=== PATIENT | male | born 1965 | race Caucasian/White ===

== ENCOUNTER 2017-03-26 23:09 | Emergency (ER) | payer OTHER ==
[~2017-03-26] VITALS: Ht 177.8 cm; Wt 78.0 kg
[2017-03-26 23:59] LABS: ABSOLUTE BASOPHIL COUNT 0.1 /CUMM (0.0-0.2); ABSOLUTE EOSINOPHIL COUNT 0.2 /CUMM (0.0-0.7); ABSOLUTE LYMPH COUNT 1.2 /CUMM (1.2-3.4); ABSOLUTE MONOCYTE COUNT 0.9 /CUMM (0.10-0.60); BASOPHIL % 0.2 % (0.0-2.0); EOSINOPHIL % 0.6 % (0-5); HEMATOCRIT 44.5 % (42-52); MEAN CORPUSCULAR HGB 30.7 PG (27.0-31.0); MEAN CORPUSCULAR HGB CONC 34.7 G/DL (33.0-37.0); MEAN CORPUSCULAR VOLUME 88.7 FL (80.0-94.0); MEAN PLATELET VOLUME 8.8 FL (7.4-10.4); PLATELET COUNT 316 /CUMM (130-400); RBC DISTRIBUTION WIDTH 12.2 % (11.5-14.5); RED BLOOD CELL CT 5.02 /CUMM (4.70-6.10); WHITE BLOOD CELL COUNT 26.3 /CUMM (4.8-10.8)
[2017-03-27] LABS: GRANULOCYTE % 91.3 % (42.2-75.2)
--- NOTE | 2017-03-27 01:36 | ED GI/GU/ABDOMINAL COMPLAINT ---
History of Present Illness General Chief Complaint: Abdominal Pain/Flank Pain Stated Complaint: BIBA, ABD PAIN, VOMITING Source: patient Exam Limitations: no limitations Vital Signs & Intake/Output Vital Signs & Intake/Output Vital Signs Date Time Temp Pulse Resp B/P B/P Pulse O2 O2 Flow FiO2 Mean Ox Delivery Rate 03/26 2343 95.7 80 18 132/81 98 Room Air ED Intake and Output 03/27 0000 03/26 1200 Intake Total Output Total Balance Patient 172 lb Weight Weight Reported by Patient Measurement Method Allergies Coded Allergies: No Known Allergies (03/26/17) Reconcile Medications Azithromycin (Zithromax) 250 MG TABLET 1 DP PO AD SINUSES 2 the first day followed by 1 for days 2-5 Triage Note: TRIAGE: PATIENT TO ER FROM HOME REPORTING "SICK ALL OF FEBRUARY," [facility] AND DX W/ SINUSITIS. TOOK FIRST DOSE OF AMOXICILLIN, REPORTS HAD SUDDEN SEVERE ABD PAIN W/ VOMITTING AND DIARRHEA. PATIENT DENIES ANY HX ALLERGIES, DENIES RASH. PATIENT REPORTS "I WAS SWEATING SO MUCH, I THOUGHT THERE WAS SOMETHING SERIOUSLY WRONG, I COULDN'T MOVE." Triage Nurses Notes Reviewed? yes Onset: Evening Duration: hour(s):, better, continues in ED Timing: single episode today Quality/Severity: cramping, sharpness, severe Location: generalized abdomen Radiation: no radiation HPI: Patient presents for evaluation of a prolonged episode of vomiting and abd pain after taking Augmentin. He has been prescribed Augmentin for possible sinus infection. He denies fever or diarrhea. He denies suspicious meals. Past History Travel History Traveled to [place] past 21 day No Medical History Any Pertinent Medical History? 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 No Review of Systems Review of Systems Constitutional: Reports: no symptoms. EENTM: Reports: no symptoms. Respiratory: Reports: no symptoms. Cardiovascular: Reports: no symptoms. GI: Reports: no symptoms. Genitourinary: Reports: no symptoms. Musculoskeletal: Reports: no symptoms. Skin: Reports: no symptoms. Neurological/Psychological: Reports: no symptoms. Hematologic/Endocrine: Reports: no symptoms. Immunologic/Allergic: Reports: no symptoms. All Other Systems: Reviewed and Negative Physical Exam Physical Exam Gastrointestinal: see below Comments: Gen.: Well-nourished, well-developed, no acute respiratory distress. Head: Normocephalic, atraumatic. Eyes: Normal inspection bilaterally Ears: Normal inspection bilaterally Nose: Normal inspection Throat/mouth : Moist mucosa Neck: Supple, full range of motion, no goiter Heart: Regular rate and rhythm, no murmurs rubs or gallops Lungs: Clear to auscultation bilaterally with normal air entry Chest: Nontender Back: Normal range of motion Abdomen: Soft, nontender, nondistended, normal bowel sounds Extremities: Normal range of motion grossly, equal radial pulses, no cyanosis clubbing or edema Neurologic: Cranial nerves grossly intact, speech is clear Skin: warm and dry Psychiatric: Calm, cooperative, no apparent delusions or hallucinations Core Measures ACS in differential dx? No Sepsis Present: No Sepsis Focused Exam Completed? No Progress Differential Diagnosis: gastritis, food poisoning, acid reflux,medication side effect Plan of Care: Orders Procedure Date/time Status URINALYSIS 03/26 2346 Active TROPONIN LEVEL 03/26 2346 Complete LIPASE 03/26 2346 Complete COMPREHENSIVE METABOLIC PANEL 03/26 2346 Complete CBC WITHOUT DIFFERENTIAL 03/26 2346 Complete AMYLASE 03/26 2346 Complete Laboratory Tests 03/27/17 0110: Urine Color Pending, Urine Clarity Pending, Urine pH Pending, Ur Specific Edgar Pending, Urine Protein Pending, Urine Ketones Pending, Urine Nitrite Pending, Urine Bilirubin Pending, Urine Urobilinogen Pending, Ur Leukocyte Esterase Pending, Ur Microscopic Pending, Urine Hemoglobin Pending, Urine Glucose Pending 03/26/17 2349: Anion Gap 15, Estimated GFR > 60, BUN/Creatinine Ratio 22.5, Glucose 134 H, Calcium 10.4 H, Total Bilirubin 0.7, AST 41, ALT 48, Alkaline Phosphatase 70, Troponin I < 0.01, Total Protein 8.3 H, Albumin 5.1 H, Globulin 3.2, Albumin/ Globulin Ratio 1.6, Amylase 56, Lipase 78, CBC w Diff MAN DIFF ORDERED, RBC 5.02 , MCV 88.7, MCH 30.7, RDW 12.2, MPV 8.8, Gran % 91.3 H, Lymphocytes % 4.6 L, Monocytes % 3.3, Eosinophils % 0.6, Basophils % 0.2, Absolute Granulocytes 24.0 H, Segmented Neutrophils 79 H, Band Neutrophils 5, Absolute Lymphocytes 1.2, Lymphocytes 9 L, Monocytes 7, Absolute Monocytes 0.9 H, Absolute Eosinophils 0.2, Absolute Basophils 0.1, Platelet Estimate ADEQUATE, Polychromasia 1+, Anisocytosis 1+, Stomatocytes FEW, Elliptocytes FEW, PUBS MCHC 34.7 Initial ED EKG: none Departure Departure Disposition: HOME OR SELF CARE Condition: Stable Clinical Impression Primary Impression: Medication side effect Qualifiers: Encounter type: initial encounter Qualified Code: T88.7XXA - Unspecified adverse effect of drug or medicament, initial encounter Referrals: Melissa LONGORIA,Igor Young (PCP/Family) Additional Instructions: Stop taking the Augmentin. Begin taking azithromycin. Clear liquid diet if feeling nauseous and advance as tolerated. Follow-up with your primary care physician tomorrow if not improved. Return if any concerns or sudden worsening. Thank you for choosing the [facility] for your care. It was a pleasure to serve you today. Roderick Glez M.D. [facility] Departure Forms: Customer Survey General Discharge Information Prescriptions: Current Visit Scripts Azithromycin (Zithromax) 1 DP PO AD #6 TAB 2 the first day followed by 1 for days 2-5
[2017-03-27] MEDS ORDERED: ZITHROMAX250 M2 PO (01:55)
[2017-03-27 02:03] VITALS: BP 130/84
== END 2017-03-27 02:04 ==
LOC: ERH 23:09
PROVIDERS: Emergency Medicine
DX: T36.95XA Adverse effect of unspecified systemic antibiotic, initial encounter (principal); R11.10 Vomiting, unspecified
CPT/HCPCS: 81001